=== PATIENT | female | born 1955 | race Caucasian/White ===

== ENCOUNTER 2017-01-02 16:34 | Emergency (ER) | payer BC ==
[2017-01-02 16:57] VITALS: BP 151/92; PULSE 92; TEMP 98.6; BMI 21.3
--- NOTE | 2017-01-02 18:02 | PDOC ---
History of Present Illness - General Chief Complaint: Lightheaded Stated Complaint: EPISODE OF FAINTNESS/ANXIETY WITHOUT LOC Time Seen by Provider: 01/02/17 17:21 - History of Present Illness Initial Comments: 01/02/17 18:02 Ms. Whitehead is a 61 year old female with no significant past medical history who presents to the emergency department following an episode this morning while driving where she describes getting light headed with heart beating rapidly and says she couldn't hear anything for 30 seconds. Ms. Whitehead says that this happened after she had spent 20-30 minutes under a hot dryer during a hair appointment. She also endorses celebrating last night with 5 glasses of wine and a shot of jagermeister and that she did not eat much for dinner last night or this morning. 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 The patient denies chest pain, shortness of breath, headache. Denies fever, chills, nausea, vomit, diarrhea and constipation. Denies dysuria, frequency, urgency and hematuria. Allergies:NKDA Past surgical history:Ankle, ACL, wrist, rotator cuff repair surgeries as well as bunyon removal Social history: Drinks 3 glasses of wine / night. Denies tobacco use. PMD - Edi Kelsey Past History - Past Medical History Allergies/Adverse Reactions: Allergies Allergy/AdvReac Type Severity Reaction Status Date / Time No Known Allergies Allergy Verified 01/02/17 17:02 Home Medications: Ambulatory Orders NK [No Known Home Medication] 01/02/17 Diabetes: No HTN: No Hypercholesterolemia: No - Immunization History Td Vaccination: (2007) - Psycho/Social/Smoking Cessation Hx Anxiety: No Suicidal Ideation: No Smoking Status: No Smoking History: Never smoked Years of Tobacco Use: 5 (quit age 25) Have you smoked in the past 12 months: No Number of Cigarettes Smoked Daily: 0 Hx Alcohol Use: Yes (MORE THAN USUAL LAST NIGHT) Drug/Substance Use Hx: No Substance Use Type: Alcohol Review of Systems - Review of Systems Comments:: 01/02/17 18:03 GENERAL/CONSTITUTIONAL: No fever or chills. No weakness. HEAD, EYES, EARS, NOSE AND THROAT: No change in vision. No ear pain or discharge. No sore throat. CARDIOVASCULAR: No chest pain or shortness of breath RESPIRATORY: No cough, wheezing, or hemoptysis. GASTROINTESTINAL: No nausea, vomiting, diarrhea or constipation. GENITOURINARY: No dysuria, frequency, or change in urination. MUSCULOSKELETAL: No joint or muscle swelling or pain. No neck or back pain. SKIN: No rash NEUROLOGIC: No headache, vertigo, loss of consciousness, or change in strength/ sensation. ENDOCRINE: No increased thirst. No abnormal weight change HEMATOLOGIC/LYMPHATIC: No anemia, easy bleeding, or history of blood clots. ALLERGIC/IMMUNOLOGIC: No hives or skin allergy. *Physical Exam - Vital Signs Last Vital Signs Temp Pulse Resp BP Pulse Ox 98.6 F 92 H 16 151/92 100 01/02/17 16:38 01/02/17 16:38 01/02/17 16:38 01/02/17 16:38 01/02/17 16:38 - Physical Exam Comments: 01/02/17 18:03 GENERAL: Awake, alert, and fully oriented, in no acute distress HEAD: No signs of trauma, normocephalic, atraumatic EYES: PERRLA, EOMI, sclera anicteric, conjunctiva clear ENT: Auricles normal inspection, hearing grossly normal, nares patent, oropharynx clear without exudates. Moist mucosa NECK: Normal ROM, supple, no lymphadenopathy, JVD, or masses LUNGS: No distress, speaks full sentences, clear to auscultation bilaterally HEART: Regular rate and rhythm, normal S1 and S2, no murmurs, rubs or gallops, peripheral pulses normal and equal bilaterally. ABDOMEN: Soft, nontender, normoactive bowel sounds. No guarding, no rebound. No masses EXTREMITIES: Normal inspection, Normal range of motion, no edema. No clubbing or cyanosis. NEUROLOGICAL: Cranial nerves II through XII grossly intact. Normal speech, normal gait, no focal sensorimotor deficits SKIN: Warm, Dry, normal turgor, no rashes or lesions noted. Medical Decision Making - Medical Decision Making 01/02/17 18:48 Ms. Whitehead presents with symptoms consistent for stress response. Will r/o cardiac cause, hypo/hypernatremia, and anemia with KEG, CMP, CBC. Patient signed off to oncoming team 7pm. *DC/Admit/Observation/Transfer Diagnosis at time of Disposition: Lightheadedness, Chest tightness - Attestations Physician Attestion: 01/02/17 18:59 I, Dr. Ephraim Villa, attest that this document has been prepared under my direction and personally reviewed by me in its entirety. I further attest, that it accurately reflects all work, treatment, procedures and medical decision -making performed by me.
--- NOTE | 2017-01-02 18:52 | PDOC ---
Attending Attestation - Resident Resident Name: Ephraim Villa - ED Attending Attestation I have performed the following: I have examined & evaluated the patient, The case was reviewed & discussed with the resident, I agree w/resident's findings & plan - HPI HPI: 01/02/17 18:47 patient is a wine drinker, has 3 glasses a day and more last night today was driving and felt a sudden head nguyen and felt like she was underwater and could not hear normally she pulled over and symptoms resolved, total duration less than 30 seconds, then felt back to normal read online about head symptoms and came to ED to rule out stroke or heart attack no cp or sob, no diff with speech, swallowing, vision, no focal numbness or weakness, no sensory changes currently feels well - Physicial Exam PE: 01/02/17 18:49 heart, rr nl s1s2 no M lungs clear abd soft, nt neuro: nl ms, nl cn, nl motor, nl sensation, no pronator drift, nl cerebellar, ffn, hkx, juarez, nih ss zero - Medical Decision Making 01/02/17 18:50 patient is a drinker, had an episode of transient head nguyen today, now feels well with normal exam including detailed cardiovascular and neuro exam will check ekg and labs, but symptoms are very nonspecific and do not point to a specific illness, furthermore the symptoms were very brief and rapidly resolved plan observation for further symptoms while workup in progress patient endorsed at 7 pm with lab and ecg pending
[2017-01-02 19:13] LABS: MCH 33.3 pg (25.7-33.7); MEAN CELL VOLUME 97.9 fl (80-96); PLATELET COUNT 245 K/MM3 (134-434); RDW 12.2 % (11.6-15.6); WHITE BLOOD COUNT 7.1 K/mm3 (4.0-10.8)
[2017-01-02 19:23] LABS: ALBUMIN 4.5 g/dl (3.5-5.0); ALK PHOS 44 U/L (32-92); ANION GAP 6 (8-16); BILIRUBIN,TOTAL 1.2 mg/dl (0.2-1.0); CALCIUM 10.2 mg/dl (8.4-10.2); CO2 29 mmol/L (22-28); CREATININE 0.6 mg/dl (0.6-1.3); GLUCOSE,RANDOM 95 mg/dl (74-106); SGOT/AST 23 U/L (10-42); SGPT/ALT 18 U/L (10-40)
[2017-01-02] MEDS ORDERED: SODIUM CHLORIDE 0.9% 1000 ML INFUS.BAG IV ONE (19:32)
--- NOTE | 2017-01-03 19:04 | EKG ---
Test Reason : Blood Pressure : / mmHG Vent. Rate : 065 BPM Atrial Rate : 065 BPM P-R Int : 122 ms QRS Dur : 098 ms QT Int : 420 ms P-R-T Axes : 034 009 058 degrees QTc Int : 436 ms SINUS RHYTHM CANNOT RULE OUT INFERIOR INFARCT , AGE UNDETERMINED NO PREVIOUS ECGS AVAILABLE Confirmed by LILIAN KANG MD ([id number]) on 01/03/2017 7:04:20 PM Referred By: GLORIA Confirmed By:LILIAN KANG MD
== END 2017-01-02 20:22 | disposition home or self-care (01) ==
LOC: FER 16:34
DX: R07.89 Other chest pain (principal); Z73.3 Stress, not elsewhere classified
CPT/HCPCS: 36415; 80053; 85027; 93005; 99282-25